=== PATIENT | male | born 1990 | race Caucasian/White ===

== ENCOUNTER 2016-10-31 13:23 | Outpatient (CLI) | payer BC ==
--- NOTE | 2016-10-31 14:26 | DIAGNOSTIC IMAGING REPORT ---
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 FINDINGS: LUMBAR SPINE: Bone mineral density 0.816 g/cm2, T score -2.5 osteoporosis LEFT HIP: Bone mineral density 0.787 g/cm2, T score -1.6 osteopenia LEFT FEMORAL NECK: Bone mineral density 0.771 g/cm2, T score -1.2 osteopenia FRACTURE RISK CALCULATION ( when applicable): 10-year fracture risk of a major osteoporotic fracture and of a hip fracture not reported because some T-score at or below -2.5 (T score greater or equal to -1.0 to: NORMAL) (T score from -1.1 to -2.4: OSTEOPENIA) (T score ess than or equal to -2.5: OSTEOPOROSIS) IMPRESSION: 1. Lumbar spine osteoporosis, osteopenia hip and femoral neck
--- NOTE | 2016-10-31 14:28 | DIAGNOSTIC IMAGING REPORT ---
PROCEDURE: XR PELVIS 1 OR 2 VIEWS INDICATION: HIP PAIN TECHNIQUE: AP view. COMPARISON: None. FINDINGS: Degenerative narrowing of both joint spaces. Right slightly greater than left. The osseous structures are normal. IMPRESSION: 1. Degenerative narrowing both hip joint spaces.
--- NOTE | 2016-10-31 14:30 | DIAGNOSTIC IMAGING REPORT ---
PROCEDURE: XR LUMBAR SPINE 2 OR 3 VIEWS INDICATION: HIP PAIN AND LOW BACK PAIN TECHNIQUE: Three views. COMPARISON: None. FINDINGS: Osseous structures and disc spaces are normal. No evidence of an acute process or fracture. IMPRESSION: 1. Negative lumbar spine.
== END 2016-10-31 23:00 ==
LOC: XR SRH 13:23
DX: K50.813 Crohn's disease of both small and large intestine with fistula (principal); Z80.9 Family history of malignant neoplasm, unspecified; D50.9 Iron deficiency anemia, unspecified; K31.1 Adult hypertrophic pyloric stenosis; M45.9 Ankylosing spondylitis of unspecified sites in spine; M81.8 Other osteoporosis without current pathological fracture; M85.89 Other specified disorders of bone density and structure, multiple sites; M16.0 Bilateral primary osteoarthritis of hip

== ENCOUNTER 2016-11-06 17:01 | Outpatient (CLI) | payer BC | END 2016-11-06 23:00 | LOC: LAB SRH 17:01 | DX: K50.80 Crohn's disease of both small and large intestine without complications (principal); E46 Unspecified protein-calorie malnutrition | CPT/HCPCS: 90100; 91282; 92668; 92670; 95059 ==

== ENCOUNTER 2017-01-18 08:19 | Emergency (ER) | payer BC ==
--- NOTE | 2017-01-18 12:06 | ED ORDER SUMMARY ---
..... Patient: DARVIN ANGELO OrderSheet [facility] VisitID: [id number] [place] [address] 26y, M Registration Date/Time: 01/18/2017 ORDER SHEET Weight: 106.1 kg (stated) Allergies: No Known Drug Allergy GENERAL ORDERS: CBC w Diff Urgent (08:45 01/18/2017 Richard Martin) (Ack 8:48 TBergley) (8:56 RMarsden R.N.) CMP Urgent (08:01/18/2017 Richard Martin) (Ack 8:48 TBergley) (8:56 RMarsden R.N.) UA-Culture if indicated Urgent (08:01/18/2017 Richard Martin) (Ack 8:48 TBergley) (10:11 TBergley) Amylase Urgent (08:01/18/2017 Richard Martin) (Ack 8:48 TBergley) (8:56 RMarsden R.N.) Lipase Urgent (08:45 01/18/2017 Richard Maritn) (Ack 8:48 TBergley) (8:56 RMarsden R.N.) MEDICATION ORDERS: IV FLUIDS: IV NS : initial bolus none -, then 1000 mL/hr for X1 (NOW) (08:45 01/18/2017 Richard Martin) (8:51 KWilliams R.N.) Solu-MEDROL IV 125 mg (NOW) (12:04 01/18/2017 Pedro Martin) (Ack 12:31 RMarsden R.N.) (12:44 RMarsden R.N.) ORDER SHEET NOTES: [Electronically signed by Gladys Herrera R.N. (15:26 01/18/2017)] [Electronically signed by Zen Wise Dr. (04:34 01/21/2017)] [Electronically locked/signed by Gladys Herrera R.N. (15:26 01/18/2017)]
--- NOTE | 2017-01-18 12:06 | ED ORDER SUMMARY ---
..... Patient: DARVIN ANGELO OrderSheet [facility] VisitID: [id number] [place] [address] 26y, M Registration Date/Time: 01/18/2017 ORDER SHEET Weight: 106.1 kg (stated) Allergies: No Known Drug Allergy GENERAL ORDERS: CBC w Diff Urgent (08:45 01/18/2017 Richard Martin) (Ack 8:48 TBergley) (8:56 RMarsden R.N.) CMP Urgent (08:01/18/2017 Richard Martin) (Ack 8:48 TBergley) (8:56 RMarsden R.N.) UA-Culture if indicated Urgent (08:01/18/2017 Richard Martin) (Ack 8:48 TBergley) (10:11 TBergley) Amylase Urgent (08:01/18/2017 Richard Martin) (Ack 8:48 TBergley) (8:56 RMarsden R.N.) Lipase Urgent (08:45 01/18/2017 Richard Martin) (Ack 8:48 TBergley) (8:56 RMarsden R.N.) MEDICATION ORDERS: IV FLUIDS: IV NS : initial bolus none -, then 1000 mL/hr for X1 (NOW) (08:45 01/18/2017 Richard Martin) (8:51 KWilliams R.N.) Solu-MEDROL IV 125 mg (NOW) (12:04 01/18/2017 Pedro Martin) (Ack 12:31 RMarsden R.N.) (12:44 RMarsden R.N.) ORDER SHEET NOTES: [Electronically signed by Gladys Herrera R.N. (15:26 01/18/2017)] [Electronically signed by Zen Wise Dr. (04:34 01/21/2017)] [Electronically locked/signed by Gladys Herrera R.N. (15:26 01/18/2017)]
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
--- NOTE | 2017-01-21 04:34 | ED DISCHARGE INSTRUCTIONS ---
Patient: DARVIN ANGELO General Instructions [facility] VisitID: [id number] [place] [address] 26y, M Registration Date/Time: 01/18/2017 Acute suprapubic abdominal pain. Crohn's disease (acute flare). INSTRUCTIONS Warnings: GENERAL WARNINGS: Return or contact your physician immediately if your condition worsens or changes unexpectedly, if not improving as expected, or if other problems arise. SPECIFICALLY, return if you develop pain, fever, vomiting, the inability to keep fluids down, blood in vomitus, blood in diarrhea, fainting, lightheadedness or vaginal bleeding. Your Current Medications: CONTINUE TAKING THE FOLLOWING MEDICATIONS: Budesonide Oral : 9mg daily. Folic Acid Oral : Tablet 1 mg, daily. Gabapentin Oral : 900mg in am 1200mg pm. Hydrocodone-Acetaminophen Oral : Q6H, prn. Ibandronate Sodium Oral : Tablet 150 mg, 1 tablet daily. Meloxicam Oral : Tablet 7.5 mg, 1 tablet daily. MetroNIDAZOLE Oral : 500 mg 2x a day. Omeprazole Oral : 20 mg daily. Ondansetron Oral : 8 mg Q8H. OxyCODONE HCl Oral : 5 mg Q4H. PredniSONE Oral : 5 mg 3x a day. TraZODone HCl Oral : 100 mg at bedtime. TraZODone HCl Oral : Tablet 100 mg, daily. Turmeric Oral : Capsule 500 mg, x2 daily. Prescription Medications: Prednisone. No refills. (60 mg PO once a day for 5 days. Disp suff quant. Substitution allowed.) Follow-up: Return to the emergency department as needed. Follow up with your doctor in three days. Reason for referral: recheck today's concerns. Summary of care provided to patient via paper. Screening today revealed the patient's blood pressure to be in the normal range. The patient should follow up with a primary care provider for blood pressure management. Understanding of the discharge instructions verbalized by patient and parent. ADDITIONAL INFORMATION Abdominal Pain,Uncertain Cause [Male] Based on your visit today, the exact cause of your abdominalpain is not clear. Your exam and tests do not indicate a dangerous cause at this time. However, the signs of a serious problem may take more time to appear. Although your evaluation was reassuring today, sometimes early in the course of many conditions, exam and lab tests can appear normal. Therefore, it is important for you to watch for any new symptoms or worsening of your condition. Causes It may not be obvious what caused your symptoms. Pay attention to things that do seem to make your symptoms worse or better and discuss this with your doctor when you follow up. Diagnosis The evaluation of abdominal pain in the emergency department may onlyrequire an exam by the doctor or it may include blood, urine or imaging studies, depending on many factors. Sometimes exams and tests can identify a cause but in many cases, a clear cause is not found. Further testing at follow up visits may help to suggest a clear diagnosis. Home Care Rest as much as possible until your next exam. Try to avoid any medications (unless otherwise directed by your doctor), foods, activities, or other factors that you may have contributed to your symptoms. Try to eat foods that you know that you have tolerated well in the past. Certain diets may be recommended for some conditions that cause abdominal pain. However, since the cause of your symptoms may not be clear, discuss your diet more with your primary care provider or specialist for further recommendations. Eating several small meals per day as opposed to 2 or 3 larger meals may help. Monitor closely for anything that may make your symptoms worse or better. Pay close attention to symptoms below that may indicate worsening of your condition. Follow Up and Precautions See your doctoras instructed or sooneror if your symptoms are not improving.In some cases, you may need more testing. When to Seek Medical Attention Contact your doctor or see medical attention ifany of the following occur: Pain is becoming worse You are unable to take your medications due to excessive vomiting Swelling of the abdomen Fever of 100.4F (38C) or higher, or as directed by your health care provider Blood in vomit or bowel movements (dark red or black color) Jaundice (yellow color of eyes and skin) New onset of weakness, dizziness or fainting New onset of chest, arm, back, neck or jaw pain Crohns Disease Crohns disease is a chronic inflammation of the intestinal tract that comes and goes. Crohns is a form of Inflammatory Bowel Disease. The exact cause is not known. Chronic diarrhea may alternate with constipation. During a symptom flare, there may be intense abdominal pain and fever. Mucus, blood or pus may appear in the stool. This is a chronic illness and episodes of inflammation come and go over time. When the disease is not active, there are usually no symptoms. Home Care: DIET: Talk to your doctor or ask for a referral to a dietitian to develop a meal plan that works for you. Learn what foods worsen your symptoms. Keeping a food diary may help with this. Eating smaller meals at more frequent intervals (4-5 times a day). Avoid greasy or fried foods. Limit consumption of milk and milk products (butter, margarine, cream sauces). If you are lactose intolerant ask your doctor to advise a digestive supplement. During a flare-up of your symptoms, avoid high fiber foods such as nuts, corn, popcorn and Turkish vegetables. MEDICATIONS: For mild to moderate cramping and diarrhea, you may use Imodium AD ([id number]), unless another medicine was prescribed. For acute flares of your illness, prescription medicines can be prescribed. Contact your doctor if this is needed. Follow Up with your doctor as advised by your staff. Support Groups for persons Crohns disease can be a source of useful information on how others are coping with this illness. They are available in person, on the phone, or via the Internet. Contact the following resources for more information. Crohns and Colitis [employer] 779.821.8219 www.ccfa.org National Digestive Diseases Information Clearinghouse (NDDIC) 622.856.9236 www.digestive.niddk.nih.gov Get Prompt Medical Attention if any of the following occur: Fever of 100.4F(38C) or higher, or as directed by your healthcare provider Abdominal pain that does not respond to usual measures Mucus, pus or blood in the stool (dark or bright red) Repeated vomiting Abdominal swelling and pain that does not go away after a few hours Prednisone Oral tablet What is this medicine? PREDNISONE (PRED ni sone) is a corticosteroid. It is commonly used to treat inflammation of the skin, joints, lungs, and other organs. Common conditions treated include asthma, allergies, and arthritis. It is also used for other conditions, such as blood disorders and diseases of the adrenal glands. How should I use this medicine? Take this medicine by mouth with a glass of water. Follow the directions on the prescription label. Take this medicine with food. If you are taking this medicine once a day, take it in the morning. Do not take more medicine than you are told to take. Do not suddenly stop taking your medicine because you may develop a severe reaction. Your doctor will tell you how much medicine to take. If your doctor wants you to stop the medicine, the dose may be slowly lowered over time to avoid any side effects. Talk to your etl architect regarding the use of this medicine in children. Special care may be needed. What side effects may I notice from receiving this medicine? Side effects that you should report to your doctor or health after school caregiver as soon as possible: allergic reactions like skin rash, itching or hives, swelling of the face, lips, or tongue changes in emotions or moods changes in vision depressed mood eye pain fever or chills, cough, sore throat, pain or difficulty passing urine increased thirst swelling of ankles, feet Side effects that usually do not require medical attention (report to your doctor or health after school caregiver if they continue or are bothersome): confusion, excitement, restlessness headache nausea, vomiting skin problems, acne, thin and shiny skin trouble sleeping weight gain What may interact with this medicine? Do not take this medicine with any of the following medications: metyrapone mifepristone This medicine may also interact with the following medications: aminoglutethimide amphotericin B aspirin and aspirin-like medicines barbiturates certain medicines for diabetes, like glipizide or glyburide cholestyramine cholinesterase inhibitors cyclosporine digoxin diuretics ephedrine female hormones, like estrogens and control pills isoniazid ketoconazole NSAIDS, medicines for pain and inflammation, like ibuprofen or naproxen phenytoin rifampin toxoids vaccines warfarin What if I miss a dose? If you miss a dose, take it as soon as you can. If it is almost time for your next dose, talk to your doctor or health after school caregiver. You may need to miss a dose or take an extra dose. Do not take double or extra doses without advice. Where should I keep my medicine? Keep out of the reach of children. Store at room temperature between 15 and 30 degrees C (59 and 86 degrees F). Protect from light. Keep container tightly closed. Throw away any unused medicine after the expiration date. What should I tell my health care provider before I take this medicine? They need to know if you have any of these conditions: [place]'s syndrome diabetes glaucoma heart disease high blood pressure infection (especially a virus infection such as chickenpox, cold sores, or herpes) kidney disease liver disease mental illness myasthenia gravis osteoporosis seizures stomach or intestine problems thyroid disease an unusual or allergic reaction to lactose, prednisone, other medicines, foods, dyes, or preservatives or trying to get breast-feeding What should I watch for while using this medicine? Visit your doctor or health after school caregiver for regular checks on your progress. If you are taking this medicine over a prolonged period, carry an identification card with your name and address, the type and dose of your medicine, and your doctor's name and address. This medicine may increase your risk of getting an infection. Tell your doctor or health after school caregiver if you are around anyone with measles or chickenpox, or if you develop sores or blisters that do not heal properly. If you are going to have surgery, tell your doctor or health after school caregiver that you have taken this medicine within the last twelve months. Ask your doctor or health after school caregiver about your diet. You may need to lower the amount of salt you eat. This medicine may affect blood sugar levels. If you have diabetes, check with your doctor or health after school caregiver before you change your diet or the dose of your diabetic medicine. You have been given the following additional information: Abdominal Pain, Unknown Cause, (Male) Crohn's Disease Prednisone Oral tablet (Electronically signed by Zen Wise Dr. 01/21/2017 4:34)
--- NOTE | 2017-01-21 04:34 | ED DISCHARGE INSTRUCTIONS ---
Patient: DARVIN ANGELO General Instructions [facility] VisitID: [id number] [place] [address] 26y, M Registration Date/Time: 01/18/2017 Acute suprapubic abdominal pain. Crohn's disease (acute flare). INSTRUCTIONS Warnings: GENERAL WARNINGS: Return or contact your physician immediately if your condition worsens or changes unexpectedly, if not improving as expected, or if other problems arise. SPECIFICALLY, return if you develop pain, fever, vomiting, the inability to keep fluids down, blood in vomitus, blood in diarrhea, fainting, lightheadedness or vaginal bleeding. Your Current Medications: CONTINUE TAKING THE FOLLOWING MEDICATIONS: Budesonide Oral : 9mg daily. Folic Acid Oral : Tablet 1 mg, daily. Gabapentin Oral : 900mg in am 1200mg pm. Hydrocodone-Acetaminophen Oral : Q6H, prn. Ibandronate Sodium Oral : Tablet 150 mg, 1 tablet daily. Meloxicam Oral : Tablet 7.5 mg, 1 tablet daily. MetroNIDAZOLE Oral : 500 mg 2x a day. Omeprazole Oral : 20 mg daily. Ondansetron Oral : 8 mg Q8H. OxyCODONE HCl Oral : 5 mg Q4H. PredniSONE Oral : 5 mg 3x a day. TraZODone HCl Oral : 100 mg at bedtime. TraZODone HCl Oral : Tablet 100 mg, daily. Turmeric Oral : Capsule 500 mg, x2 daily. Prescription Medications: Prednisone. No refills. (60 mg PO once a day for 5 days. Disp suff quant. Substitution allowed.) Follow-up: Return to the emergency department as needed. Follow up with your doctor in three days. Reason for referral: recheck today's concerns. Summary of care provided to patient via paper. Screening today revealed the patient's blood pressure to be in the normal range. The patient should follow up with a primary care provider for blood pressure management. Understanding of the discharge instructions verbalized by patient and parent. ADDITIONAL INFORMATION Abdominal Pain,Uncertain Cause [Male] Based on your visit today, the exact cause of your abdominalpain is not clear. Your exam and tests do not indicate a dangerous cause at this time. However, the signs of a serious problem may take more time to appear. Although your evaluation was reassuring today, sometimes early in the course of many conditions, exam and lab tests can appear normal. Therefore, it is important for you to watch for any new symptoms or worsening of your condition. Causes It may not be obvious what caused your symptoms. Pay attention to things that do seem to make your symptoms worse or better and discuss this with your doctor when you follow up. Diagnosis The evaluation of abdominal pain in the emergency department may onlyrequire an exam by the doctor or it may include blood, urine or imaging studies, depending on many factors. Sometimes exams and tests can identify a cause but in many cases, a clear cause is not found. Further testing at follow up visits may help to suggest a clear diagnosis. Home Care Rest as much as possible until your next exam. Try to avoid any medications (unless otherwise directed by your doctor), foods, activities, or other factors that you may have contributed to your symptoms. Try to eat foods that you know that you have tolerated well in the past. Certain diets may be recommended for some conditions that cause abdominal pain. However, since the cause of your symptoms may not be clear, discuss your diet more with your primary care provider or specialist for further recommendations. Eating several small meals per day as opposed to 2 or 3 larger meals may help. Monitor closely for anything that may make your symptoms worse or better. Pay close attention to symptoms below that may indicate worsening of your condition. Follow Up and Precautions See your doctoras instructed or sooneror if your symptoms are not improving.In some cases, you may need more testing. When to Seek Medical Attention Contact your doctor or see medical attention ifany of the following occur: Pain is becoming worse You are unable to take your medications due to excessive vomiting Swelling of the abdomen Fever of 100.4F (38C) or higher, or as directed by your health care provider Blood in vomit or bowel movements (dark red or black color) Jaundice (yellow color of eyes and skin) New onset of weakness, dizziness or fainting New onset of chest, arm, back, neck or jaw pain Crohns Disease Crohns disease is a chronic inflammation of the intestinal tract that comes and goes. Crohns is a form of Inflammatory Bowel Disease. The exact cause is not known. Chronic diarrhea may alternate with constipation. During a symptom flare, there may be intense abdominal pain and fever. Mucus, blood or pus may appear in the stool. This is a chronic illness and episodes of inflammation come and go over time. When the disease is not active, there are usually no symptoms. Home Care: DIET: Talk to your doctor or ask for a referral to a dietitian to develop a meal plan that works for you. Learn what foods worsen your symptoms. Keeping a food diary may help with this. Eating smaller meals at more frequent intervals (4-5 times a day). Avoid greasy or fried foods. Limit consumption of milk and milk products (butter, margarine, cream sauces). If you are lactose intolerant ask your doctor to advise a digestive supplement. During a flare-up of your symptoms, avoid high fiber foods such as nuts, corn, popcorn and Barbadian vegetables. MEDICATIONS: For mild to moderate cramping and diarrhea, you may use Imodium AD ([id number]), unless another medicine was prescribed. For acute flares of your illness, prescription medicines can be prescribed. Contact your doctor if this is needed. Follow Up with your doctor as advised by your staff. Support Groups for persons Crohns disease can be a source of useful information on how others are coping with this illness. They are available in person, on the phone, or via the Internet. Contact the following resources for more information. Crohns and Colitis [employer] 848.459.7127 www.ccfa.org National Digestive Diseases Information Clearinghouse (NDDIC) 324.524.2358 www.digestive.niddk.nih.gov Get Prompt Medical Attention if any of the following occur: Fever of 100.4F(38C) or higher, or as directed by your healthcare provider Abdominal pain that does not respond to usual measures Mucus, pus or blood in the stool (dark or bright red) Repeated vomiting Abdominal swelling and pain that does not go away after a few hours Prednisone Oral tablet What is this medicine? PREDNISONE (PRED ni sone) is a corticosteroid. It is commonly used to treat inflammation of the skin, joints, lungs, and other organs. Common conditions treated include asthma, allergies, and arthritis. It is also used for other conditions, such as blood disorders and diseases of the adrenal glands. How should I use this medicine? Take this medicine by mouth with a glass of water. Follow the directions on the prescription label. Take this medicine with food. If you are taking this medicine once a day, take it in the morning. Do not take more medicine than you are told to take. Do not suddenly stop taking your medicine because you may develop a severe reaction. Your doctor will tell you how much medicine to take. If your doctor wants you to stop the medicine, the dose may be slowly lowered over time to avoid any side effects. Talk to your cane piler regarding the use of this medicine in children. Special care may be needed. What side effects may I notice from receiving this medicine? Side effects that you should report to your doctor or health hospice care transitions coordinator as soon as possible: allergic reactions like skin rash, itching or hives, swelling of the face, lips, or tongue changes in emotions or moods changes in vision depressed mood eye pain fever or chills, cough, sore throat, pain or difficulty passing urine increased thirst swelling of ankles, feet Side effects that usually do not require medical attention (report to your doctor or health hospice care transitions coordinator if they continue or are bothersome): confusion, excitement, restlessness headache nausea, vomiting skin problems, acne, thin and shiny skin trouble sleeping weight gain What may interact with this medicine? Do not take this medicine with any of the following medications: metyrapone mifepristone This medicine may also interact with the following medications: aminoglutethimide amphotericin B aspirin and aspirin-like medicines barbiturates certain medicines for diabetes, like glipizide or glyburide cholestyramine cholinesterase inhibitors cyclosporine digoxin diuretics ephedrine female hormones, like estrogens and control pills isoniazid ketoconazole NSAIDS, medicines for pain and inflammation, like ibuprofen or naproxen phenytoin rifampin toxoids vaccines warfarin What if I miss a dose? If you miss a dose, take it as soon as you can. If it is almost time for your next dose, talk to your doctor or health hospice care transitions coordinator. You may need to miss a dose or take an extra dose. Do not take double or extra doses without advice. Where should I keep my medicine? Keep out of the reach of children. Store at room temperature between 15 and 30 degrees C (59 and 86 degrees F). Protect from light. Keep container tightly closed. Throw away any unused medicine after the expiration date. What should I tell my health care provider before I take this medicine? They need to know if you have any of these conditions: Clancy's syndrome diabetes glaucoma heart disease high blood pressure infection (especially a virus infection such as chickenpox, cold sores, or herpes) kidney disease liver disease mental illness myasthenia gravis osteoporosis seizures stomach or intestine problems thyroid disease an unusual or allergic reaction to lactose, prednisone, other medicines, foods, dyes, or preservatives or trying to get breast-feeding What should I watch for while using this medicine? Visit your doctor or health hospice care transitions coordinator for regular checks on your progress. If you are taking this medicine over a prolonged period, carry an identification card with your name and address, the type and dose of your medicine, and your doctor's name and address. This medicine may increase your risk of getting an infection. Tell your doctor or health hospice care transitions coordinator if you are around anyone with measles or chickenpox, or if you develop sores or blisters that do not heal properly. If you are going to have surgery, tell your doctor or health hospice care transitions coordinator that you have taken this medicine within the last twelve months. Ask your doctor or health hospice care transitions coordinator about your diet. You may need to lower the amount of salt you eat. This medicine may affect blood sugar levels. If you have diabetes, check with your doctor or health hospice care transitions coordinator before you change your diet or the dose of your diabetic medicine. You have been given the following additional information: Abdominal Pain, Unknown Cause, (Male) Crohn's Disease Prednisone Oral tablet (Electronically signed by Zen Wise Dr. 01/21/2017 4:34)
--- NOTE | 2017-01-21 04:35 | ED MED RECONCILIATION SUMMARY ---
Patient: DARVIN ANGELO Medication Reconciliation Report [facility] VisitID: [id number] [address] [place] [address] 26y, M Registration Date/Time: 01/18/2017 Weight: 106.1 kg Height/Length: 74 in. BMI: 30.1 ALLERGIES: No Known Drug Allergy The patient's Home Medications are listed below: CONTINUE TAKING THE FOLLOWING MEDICATIONS: Budesonide Oral 9mg daily Folic Acid Oral (1 mg), daily Gabapentin Oral 900mg in am 1200mg pm Hydrocodone-Acetaminophen Oral, Q6H Ibandronate Sodium Oral (150 mg) 1 tablet, daily Meloxicam Oral (7.5 mg) 1 tablet, daily MetroNIDAZOLE Oral 500 mg, 2x a day Omeprazole Oral 20 mg, daily Ondansetron Oral 8 mg, Q8H OxyCODONE HCl Oral 5 mg, Q4H PredniSONE Oral 5 mg, 3x a day TraZODone HCl Oral 100 mg, at bedtime TraZODone HCl Oral (100 mg), daily Turmeric Oral (500 mg) x2 daily The source(s) of the original Home Medication information: Not obtained. The following Medications were given to the patient in the Emergency Department: IV NS IV Fluids bolus 0, then 999 mL/hr, administered: 01/18/2017 8:51:00 AM SOLU-MEDROL [IVP] IVP 125 mg, administered: 01/18/2017 12:44:00 PM The following Medications were prescribed to the patient: Prednisone. No refills.(60 mg PO once a day for 5 days. Disp suff quant. Substitution allowed.) -- Zen Wise Dr.
--- NOTE | 2017-01-21 04:35 | ED MAR SUMMARY ---
..... Medication Administration Record [facility] [address] [place] [address] Patient: DARVIN ANGELO Visit ID: [id number] 26y, M Weight: 106.1 kg Height/Length: 74 in BMI: 30.1 ALLERGIES: No Known Drug Allergy Start 08:51 01/18/2017 Bill Marks REmilyNEmily, Stop 10:00 01/18/2017 Anaya Marin REmilyN. Medication Administered: IV NS (SALINE), Dose: IV Fluids over 1 hour(s), Rate: 999 mL/hr, Dispensed: 1000 mL bag, Site: #1 left forearm. Medication Ordered: IV NS : initial bolus none -, then 1000 mL/hr for X1 (NOW). Given 12:44 01/18/2017 Gladys Herrera REmilyN. Medication Administered: SOLU-MEDROL [IVP] (METHYLPREDNISOLONE SODIUM SUCC), Dose: 125 mg IVP over 2 minute(s), Site: #1. Medication Ordered: Solu-MEDROL IV 125 mg (NOW).
--- NOTE | 2017-01-21 04:35 | ED MED RECONCILIATION SUMMARY ---
Patient: DARVIN ANGELO Medication Reconciliation Report [facility] VisitID: [id number] [address] [place] [address] 26y, M Registration Date/Time: 01/18/2017 Weight: 106.1 kg Height/Length: 74 in. BMI: 30.1 ALLERGIES: No Known Drug Allergy The patient's Home Medications are listed below: CONTINUE TAKING THE FOLLOWING MEDICATIONS: Budesonide Oral 9mg daily Folic Acid Oral (1 mg), daily Gabapentin Oral 900mg in am 1200mg pm Hydrocodone-Acetaminophen Oral, Q6H Ibandronate Sodium Oral (150 mg) 1 tablet, daily Meloxicam Oral (7.5 mg) 1 tablet, daily MetroNIDAZOLE Oral 500 mg, 2x a day Omeprazole Oral 20 mg, daily Ondansetron Oral 8 mg, Q8H OxyCODONE HCl Oral 5 mg, Q4H PredniSONE Oral 5 mg, 3x a day TraZODone HCl Oral 100 mg, at bedtime TraZODone HCl Oral (100 mg), daily Turmeric Oral (500 mg) x2 daily The source(s) of the original Home Medication information: Not obtained. The following Medications were given to the patient in the Emergency Department: IV NS IV Fluids bolus 0, then 999 mL/hr, administered: 01/18/2017 8:51:00 AM SOLU-MEDROL [IVP] IVP 125 mg, administered: 01/18/2017 12:44:00 PM The following Medications were prescribed to the patient: Prednisone. No refills.(60 mg PO once a day for 5 days. Disp suff quant. Substitution allowed.) -- Zen [address] Dr.
--- NOTE | 2017-01-21 04:35 | ED MAR SUMMARY ---
..... Medication Administration Record [facility] [address] [place] [address] Patient: DARVIN ANGELO Visit ID: [id number] 26y, M Weight: 106.1 kg Height/Length: 74 in BMI: 30.1 ALLERGIES: No Known Drug Allergy Start 08:51 01/18/2017 Bill Marks REmilyNEmily, Stop 10:00 01/18/2017 Anaya Marin REmilyN. Medication Administered: IV NS (SALINE), Dose: IV Fluids over 1 hour(s), Rate: 999 mL/hr, Dispensed: 1000 mL bag, Site: #1 left forearm. Medication Ordered: IV NS : initial bolus none -, then 1000 mL/hr for X1 (NOW). Given 12:44 01/18/2017 Gladys Herrera REmilyN. Medication Administered: SOLU-MEDROL [IVP] (METHYLPREDNISOLONE SODIUM SUCC), Dose: 125 mg IVP over 2 minute(s), Site: #1. Medication Ordered: Solu-MEDROL IV 125 mg (NOW).
== END 2017-01-18 12:47 | disposition home or self-care (01) ==
LOC: ED SRH 08:19
DX: R10.30 Lower abdominal pain, unspecified (principal); K50.90 Crohn's disease, unspecified, without complications; Z79.899 Other long term (current) drug therapy
CPT/HCPCS: 90004; 90074; 90100; 92235; 92530; 95059